=== PATIENT | female | born 1935 | race Caucasian/White ===

== ENCOUNTER 2020-03-10 09:23 | Emergency (ER) | payer MEDICARE, SELFPAY ==
[2020-03-10] VITALS (11 sets, daily range): BP systolic 128–178; BP diastolic 75–127; PULSE 66–117; RESP 14–20; O2SAT 92–98; BMI 17.7
--- NOTE | 2020-03-10 09:31 | ECG_ITS ---
Measurements Intervals [place] Rate: 97 P: 40 NM: 212 QRS: 50 QRSD: 77 T: 111 QT: 364 QTc: 464 SINUS RHYTHM WITH FIRST DEGREE AV BLOCK LOW QRS VOLTAGE IN EXTREMITY LEADS [QRS DEFLECTION < 0.5 mV IN LIMB LEADS] MARKED ST ELEVATION, CONSIDER INFERIOR INJURY [MARKED ST ELEVATION W/O NORMALLY INFLECTED T WAVE IN II/aVF] ACUTE TN INTERPRETATION BASED ON A DEFAULT AGE OF 40 YEARS Compared to ECG 03/12/2018 14:27:16 First degree AV block now present Low QRS voltage now present ST (T wave) deviation now present Myocardial infarct finding still present Electronically Signed On 03-10-2020 11:39:34 CDT by Wes Agustin M.D. [email or web address]
--- NOTE | 2020-03-10 09:31 | XR_ITS ---
WS: [id number] XR chest 1V portable [id number] REASON FOR EXAM: dyspnea/cough FINDINGS: The mass defect previously described in May 16, 2019 involving the right lower lung has in creased in size slightly now measures 9.54 x 7.99 cm. On previous exam and appear to be a nodule in the left upper lung this is not well seen today. There is cardiomegaly with arteriosclerotic changes. The 11th rib changes described on previous exam is not well seen today. XR/XR chest 1V portable [id number] IMPRESSION: Progressive mass defect right lower lung slightly more accentuated than previou s exam May 16, 2019. Arteriosclerotic heart disease.
[2020-03-10 09:41] LABS: Basophils # 0.1 10^3/uL (0.0-0.1); Basophils % 0.4 %; Hematocrit 41.4 % (37.0-47.0); Hemoglobin 12.8 g/dL (11.5-15.3); Lymphocytes # 2.4 10^3/uL (0.8-4.8); Lymphocytes % 8.9 %; Mean Corpuscular HGB Conc 30.9 g/dL (30.0-36.0); Mean Corpuscular Hemoglobin 28.3 pg (28.0-34.0); Mean Corpuscular Volume 91.4 fL (81-99); Mean Platelet Volume 9.9 fL (7.4-10.4); Monocytes # 1.7 10^3/uL (0.2-0.9); Monocytes % 6.5 %; Neutrophils # 22.1 10^3/uL (1.8-7.7); Neutrophils % 82.9 %; Nucleated Red Blood Cells % 0 %; Platelet Count 636 10^3/cmm (130-400); Red Blood Count 4.53 10^6/uL (4.1-5.3); Red Cell Distribution Width 16.5 % (12.1-15.1); White Blood Count 26.6 10^3/uL (4.0-10.0)
--- NOTE | 2020-03-10 09:41 | CT_ITS ---
WS: [id number] CT head wo con* [id number] REASON FOR EXAM: AMS IV CONTRAST ADMINISTERED: None TOTAL EXAM DLP: 894.[address] scans at [facility] use at least one of these dose optimization techniques: automat ed exposure control; mA and/or kV adjustment per patient size (includes targeted exams where dose is matched to clinical indication); or iterative reconstruction. FINDINGS: Progressive effacement of frontal and temporal lobes are seen with ventriculomegaly consist ent with moderate cerebral atrophy. Small vessel ischemic changes in the paraventricular area similar to the previous exam. Along the posterior fossa on the right side is a mass measures 2.48 cm. This lesion is heavy calcifie d and is similar in size to previous exam of March 2018. And is consistent with a calcified meningioma. There is calcification of the basal ganglions bilaterally. In the left lentiform nucleus area there is evidence of a remote small lacunar infarction. This is si milar to previous exam. The paranasal sinuses appear to be open with no inflammatory changes. The orbits appear to be normal and the optic nerves and optic chiasma's were normal. The 7th and 8th nerve complexes were normal. CT/CT head wo con* [id number] IMPRESSION: Comparisons were made to previous exam of March 11, 2018 with again noted a menin gioma involving the right occipital lobe this is heavily calcified and is arredondo ed slightly since previous exam. There is moderate cerebral atrophy appears to be slightly more progressive Lacunar infarction left internal capsule unchanged appears to be remote.
[2020-03-10 09:43] LABS: ABG PH Result 7.42 (7.35-7.45); Base Excess ABG -3.9 mmol/L (-2.0-2.0); Blood Gas Allen Test Pos; Blood Gas Sample Site Radial, left; Blood Gas Sample Type Arterial; Carboxyhemoglobin 0.9 %THgb (0.4-20.1); HCO3 ABG 19.5 mmol/L (22-26); HGB O2 Sat 93.3 % (95-100); Ionized Calcium Level - ABG 1.3 mmol/L (1.1-1.4); Methemoglobin 0.8 % (0.4-1.5); Oxygen Device ROOM AIR; PO2 ABG 71.1 mmHg (80.0-100.0); Potassium Level - ABG 4.4 mmol/L (3.5-5.0)
[2020-03-10 09:58] LABS: Alanine Aminotransferase 7 U/L (0-33); Albumin Level 3.7 g/dL (3.5-5.2); Alkaline Phosphatase 136 IU/L (35-105); Anion Gap 21.4 (5-19); Aspartate Amino Transferase 28 U/L (0-32); Blood Urea Nitrogen 22 mg/dL (8-23); Calcium 10.2 mg/dL (8.5-10.5); Carbon Dioxide 22 mmol/L (22-29); Chloride 106 mmol/L (98-107); Globulin 3.1 g/dL (1.3-4.6); Glucose 114 mg/dL (65-115); Lipase 20 U/L (13-60); Osmolality Calculated 296 mOsm/kg (285-295); Potassium 5.4 mmol/L (3.5-5.1); Sodium 144 mmol/L (136-145); Total Bilirubin 0.5 mg/dL (0.15-1.2); Total Protein 6.8 g/dL (6.6-8.7)
[2020-03-10 09:59] LABS: Ammonia 29 umol/L (11-51)
[2020-03-10 10:01] LABS: Lactate (Lactic Acid level) 4.1 mmol/L (0.5-2.2)
[2020-03-10 10:02] LABS: Alcohol Level < 10 mg/dL (0-10)
[2020-03-10 10:03] LABS: Troponin(5th) Baseline 1048 ng/mL (0-10)
--- NOTE | 2020-03-10 10:19 | PM.CONSULT ---
Providers/Reason For Consult Consulting Physican/Specialty*: Cardiovascular medicine Reason for Consult*: STEMI alert Requesting Physcian: Emergency medicine History of Present Illness History of Present Illness Brynn Peguero is a 84 year old female who was brought into the emergency room by ambulance. She lives at home with her daughter and granddaughter. Patient has severe dementia and is poorly communicative at baseline. Her daughter and granddaughter, with whom she lives, noticed a change in her mental status from being somewhat responsive and conversant to almost completely unresponsive late yesterday. Her daughter stated that she would just stare off in space and not talk at all . She also has not eaten or drunk anything for a while. Patient has severe underlying dementia which was diagnosed several years ago. 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 At that time her family, because of the underlying dementia and other medical problems, decided not to embark upon any type of treatment. Because of the mental status change the patient was brought to the emergency room today by ambulance. The ambulance EKG suggested an acute inferior wall ID so a STEMI alert was called. I then saw her here in the emergency room. Patient is completely unable to communicate. She will answer every question with a simple yes or no but the answers do not make any sense. She is unable to elaborate. She denies any pain. She has a right-sided gaze preference. Review of Systems General: Reports: ROS unobtainable due to medical condition Meds/Allergies Home Medications and Allergies Home Medications Medication Instructions Recorded Confirmed Last Taken Type galantamine 8 mg PO 03/10/20 Unknown History levothyroxine 75 mcg PO 03/10/20 Unknown History meloxicam 15 mg PO 03/10/20 Unknown History olanzapine 5 mg PO 03/10/20 Unknown History prednisone 5 mg PO 03/10/20 Unknown History PFSH Acute PFSH: Medical History (Updated 03/10/20 @ 10:30 by Jorge Joe MD) CAD (coronary artery disease) Chronic kidney disease (CKD) Degenerative joint disease Dementia Dyslipidemia Essential hypertension Hypothyroidism Lacunar infarction Meningioma, cerebral Nephrolithiasis Thrombocytosis Vitals/I&O/Wt Last Vital Signs Pulse 83 03/10/20 09:59 Resp 18 03/10/20 09:59 BP 173/120 03/10/20 09:59 Pulse Ox 94 05/09/20 09:59 Weight last 48 hrs Weight 110 lb Physical Exam Narrative: EXAM NARRATIVE: GENERAL: In general she is somewhat agitated with a right-sided gaze preference, basically uncommunicative, frail lying on a gurney HEENT: Exam within normal limits. NECK: Supple without jugular vein distention. The carotid upstroke is normal without bruits. BACK: Exam normal. LUNGS: Clear. Decreased breath sounds HEART: Regular rate and rhythm. ABDOMEN: Benign without organomegaly or tenderness. EXTREMITIES: No edema. NEUROLOGIC: Neurologic exam cannot be performed due to the underlying dementia. She has a right-sided gaze preference SKIN: Unremarkable. Data Other Data: Other data: EKG reveals sinus rhythm with ST elevation in the inferior leads. Lactate level 4.1. Troponin 1048. Arterial blood gas PO2 71, PCO2 30, pH 7.42. Chest x-ray shows an enlarging mass in the right lower lobe. CT of the head shows a meningioma in the right occipital lobe with a lacunar infarct in the left internal capsule. A&P Assessment and plan (1) CAD (coronary artery disease): Status: Acute (2) Acute transmural inferior wall ID: Status: Acute (3) Essential hypertension: Status: Acute (4) Dyslipidemia: Status: Acute (5) Dementia: Status: Acute (6) Chronic kidney disease (CKD): Status: Acute (7) Thrombocytosis: Status: Acute Additional A&P Information This is an untenable situation for any aggressive therapy regarding her cardiac status. I had a discussion with the patient's daughter and granddaughter regarding her cardiac status. I strongly recommend conservative therapy and no aggression. Her severe underlying dementia and agitation would require endotracheal intubation and general anesthesia to do a procedure. She would certainly have contrast-induced nephropathy given her underlying kidney disease. Additionally there is no benefit to performing angiography in this woman with untreatable and untreated cancer of the lung. We would likely do her more harm by anesthetizing her, intubating her and trying to perform a procedure. Therefore we will simply treat her expectantly. She should be made DNR/DNI. Her family did not want her intubated as far back as 2017 when she was diagnosed with lung cancer. We will be available peripherally if necessary. Consult Attestations Medical Necessity Statement: Not applicable Coding Level of Care Code New Pt Acute Dispute Resolution Analyst for g Fwd Patient Type New History Detailed Exam Detailed Medical Decision Making Moderate Complexity Diagnoses CAD (coronary artery disease) I25.10 Acute transmural inferior wall ID I21.19 Essential hypertension I10 Dyslipidemia E78.5 Dementia F03.90 Chronic kidney disease (CKD) N18.9 Thrombocytosis D47.3
--- NOTE | 2020-03-10 10:21 | PC.NURSE ---
Upon entering pt room, pt was noted to be bleeding from IV site on left AC. Pt cleaned and new sheets and chux pad placed. Pt was also soiled in her diaper and upon attempting to change pt and provide papi-care, pt became agitated and started kicking staff. VO received per Dr Roca to give 1mg Ativan IVP and 2mg Morphine IVP once. Pt IV site cleaned and re-dressed. Both IV sites secured with coban.
[2020-03-10] MEDS: LORazepam 2 mg/mL INJ 1 mL 1 MG IVP ×2 (10:23→11:58)
[2020-03-10] MEDS: sodium chloride 0.9% 500 ML IV (10:23)
[2020-03-10] MEDS: morphine 4 mg/mL SDV 1 mL 2 MG IVP (10:25)
[2020-03-10 11:02] LABS: Add Urine Microscopic? YES; Bilirubin Urine Neg (NEGATIVE); Blood Urine 2+ (Negative); Glucose Urine UA Norm (Normal); Ketones Urine 1+ (Negative); Leukocyte Esterase Urine 2+ (Negative); Nitrate Urine Negative (Negative); Protein Urine 1+ (Negative); Specific Gravity, Urine 1.015 (1.005-1.030); Urine Appearance Hazy (CLEAR); Urine Color Yellow (Yellow); Urobilinogen Urine 1 mg/dL (Negative); pH Urine 7 (5-7)
[2020-03-10 11:03] LABS: Bacteria Urine 4+; RBC Urine 15-25 /hpf (0-2); Squamous Epithelial Cell Urine 0-4 (0-5)
[2020-03-10 11:04] LABS: Add Urine Culture? Yes; WBC Urine 40-55 /hpf (0-5)
[2020-03-10 11:05] LABS: Amphetamines Screen Urine Negative (Negative); Barbiturates Screen Urine Negative (Negative); Benzodiazepines Screen Urine Negative (Negative); Cocaine Screen Urine Negative (Negative); Opiate Screen Urine Positive (Negative); PCP Screen Urine Negative (Negative); THC Screen Urine Negative (Negative)
--- NOTE | 2020-03-10 11:40 | W.ED.GENADLT ---
HPI - General Adult General: Chief complaint: General Medical Stated complaint: STEMI Time Seen by Provider: 03/10/20 09:30 History of Present Illness: HPI narrative: 84-year-old female who was brought in by EMS. Family noticed change in mental status last night around 10 PM to 12 AM she just persisted to this morning she is not really interactive at all she has dementia usually will interact even though her conversations Ortho do not make much sense. When EMS arrived they did an EKG and found that she had a acute STEMI. Although they could not get her to express that she had any chest pain when she arrives here she will make some intelligible comments mostly related to pain but I cannot get her to answer any specific questions in a reliable way. She is also noticed to have a fixed gaze to the right. Her dementia is quite severe confirmed this with the family. STEMI was called alert was called prior to the patient's arrival Dr. Joe has been to the department and seen her as well see the notes below. Unfortunately her history is completely unreliable from her and was gained from family and old records. Review of Systems General: Reports: ROS unobtainable due to medical condition and ROS unobtainable due to mental status PFS ED PFSH: Medical History CAD (coronary artery disease) Chronic kidney disease (CKD) Degenerative joint disease Dementia Dyslipidemia Essential hypertension Hypothyroidism Lacunar infarction Meningioma, cerebral Nephrolithiasis Thrombocytosis Physical Exam HENMT: COMMON NORMALS: normocephalic, head/scalp atraumatic, hearing grossly normal bilaterally and external ears normal HEAD & SCALP: normocephalic and atraumatic EXTERNAL EAR: Yes external ears normal Eye: OTHER: Fixed right gaze. Neck/C-Spine: COMMON NORMALS: full ROM, no lymphadenopathy, supple and no JVD Resp: COMMON NORMALS: normal respiratory effort, no retractions, no use of accessory muscles and clear to auscultation bilaterally AUSCULTATION: clear to auscultation bilaterally Cardio: COMMON NORMALS: no JVD, regular rate, regular rhythm and no murmurs RATE: regular rate RHYTHM: regular rhythm GI: COMMON NORMALS: soft to palpation and no hepatosplenomegaly AUSCULTATION: Yes normoactive bowel sounds PALPATION: Yes soft, No tender, No guarding and Yes no hepatosplenomegaly Extremity: COMMON NORMALS: normal to inspection, normal capillary refill, no clubbing, cyanosis or edema, no calf tenderness and no pedal edema Course Vital Signs: Vital signs: Vital Signs Pulse Rate 103 H 03/10/20 14:30 Respiratory Rate 16 03/10/20 14:30 Blood Pressure 148/82 03/10/20 14:30 Pulse Oximetry 93 03/10/20 14:30 MDM - General Adult MDM Narrative: Medical decision making narrative: Dr. Joe and I conferred he had reviewed the record and family history of lung cancer. We met with the family and recommended maximal medical therapy and monitoring. Unfortunately aggressive interventions required her to be intubated to go to the [employer] [facility]. She is much more likely to be harmed by this than benefited. Is likely she is well into her STEMI at this point. In this conversation we were aware that the patient had a history of lung cancer which they had elected not to treat but unbeknownst to us she was already on hospice care. Discussed with Dr. Gonzalez will look at doing observation he is reevaluating with the family whether or not not the patient will actually be placed on observation whether or not he will she will go home for continued comfort cares at home. Lab Data: Labs: Lab Results 03/10/20 03/10/20 03/10/20 Range/Units 09:30 09:30 09:30 WBC 26.6 H (4.0-10.0) 10^3/ uL RBC 4.53 (4.1-5.3) 10^6/u L Hgb 12.8 (11.5-15.3) g/dL Hct 41.4 (37.0-47.0) % MCV 91.4 (81-99) fL MCH 28.3 (28.0-34.0) pg MCHC 30.9 (30.0-36.0) g/dL RDW 16.5 H (12.1-15.1) % Plt Count 636 H (130-400) 10^3/c mm MPV 9.9 (7.4-10.4) fL Neut % (Auto) 82.9 % Lymph % (Auto) 8.9 % [place] % (Auto) 6.5 % Eos % (Auto) 0.0 % Baso % (Auto) 0.4 % Neut # (Auto) 22.1 H (1.8-7.7) 10^3/u L Lymph # (Auto) 2.4 (0.8-4.8) 10^3/u L [place] # (Auto) 1.7 H (0.2-0.9) 10^3/u L Eos # (Auto) 0.0 (0.0-0.8) 10^3/u L Baso # (Auto) 0.1 (0.0-0.1) 10^3/u L Nucleated RBC % (a uto) 0 % Nucleated RBCs # 0.0 /100WBC Specimen Type Sample Site ABG pH (7.35-7.45) ABG pCO2 (35-45) mmHg ABG pO2 (80.0-100.0) mmH g ABG HCO3 (22-26) mmol/L ABG O2 Saturation ABG Base Excess (-2.0-2.0) mmol/ L Alberto Test A-a O2 Gradient (5-10) mmHg Hematocrit (37-47) % Hgb O2 Saturation (95-100) % Carboxyhemoglobin (0.4-20.1) %THgb Methemoglobin (0.4-1.5) % Total Hemoglobin (12-16) g/dL Ionized Calcium (1.1-1.4) mmol/L O2 Delivery Device FiO2 % General Lithographic Worker ID Sodium 144 (136-145) mmol/L Potassium 5.4 H (3.5-5.1) mmol/L Chloride 106 (98-107) mmol/L Carbon Dioxide 22 (22-29) mmol/L Anion Gap 21.4 H (5-19) BUN 22 (8-23) mg/dL Creatinine 2.3 H (0.5-0.9) mg/dL Glucose 114 (65-115) mg/dL Calculated Osmolal ity 296 H (285-295) mOsm/k g Lactate (0.5-2.2) mmol/L Calcium 10.2 (8.5-10.5) mg/dL Total Bilirubin 0.5 (0.15-1.2) mg/dL AST 28 (0-32) U/L ALT 7 (0-33) U/L Alkaline Phosphata se 136 H (35-105) IU/L Ammonia 29 (11-51) umol/L Troponin T Baselin e (0-10) ng/mL Total Protein 6.8 (6.6-8.7) g/dL Albumin 3.7 (3.5-5.2) g/dL Globulin 3.1 (1.3-4.6) g/dL Lipase 20 (13-60) U/L Urine Color (Yellow) Urine Appearance (CLEAR) Urine pH (5-7) Ur Specific Gravit y (1.005-1.030) Urine Protein (Negative) Urine Glucose (UA) (Normal) Urine Ketones (Negative) Urine Blood (Negative) Urine Nitrate (Negative) Urine Bilirubin (NEGATIVE) Urine Urobilinogen (Negative) mg/dL Ur Leukocyte Michelle ase (Negative) Urine RBC (0-2) /hpf Urine WBC (0-5) /hpf Ur Squamous Epith Cells (0-5) Urine Bacteria (NONE) Urine Opiates Scre en (Negative) ng/mL Ur Barbiturates Sc reen (Negative) ng/mL Ur Phencyclidine S crn (Negative) ng/mL Ur Amphetamines Sc reen (Negative) ng/mL U Benzodiazepines Scrn (Negative) ng/mL Urine Cocaine Scre en (Negative) ng/mL U Marijuana (THC) Screen (Negative) ng/mL Ethyl Alcohol < 10 (0-10) mg/dL 03/10/20 03/10/20 03/10/20 Range/Units 09:30 09:30 09:32 WBC (4.0-10.0) 10^3/ uL RBC (4.1-5.3) 10^6/u L Hgb (11.5-15.3) g/dL Hct (37.0-47.0) % MCV (81-99) fL MCH (28.0-34.0) pg MCHC (30.0-36.0) g/dL RDW (12.1-15.1) % Plt Count (130-400) 10^3/c mm MPV (7.4-10.4) fL Neut % (Auto) % Lymph % (Auto) % [place] % (Auto) % Eos % (Auto) % Baso % (Auto) % Neut # (Auto) (1.8-7.7) 10^3/u L Lymph # (Auto) (0.8-4.8) 10^3/u L [place] # (Auto) (0.2-0.9) 10^3/u L Eos # (Auto) (0.0-0.8) 10^3/u L Baso # (Auto) (0.0-0.1) 10^3/u L Nucleated RBC % (a uto) % Nucleated RBCs # /100WBC Specimen Type Arterial Sample Site Radial, left ABG pH 7.42 (7.35-7.45) ABG pCO2 30.0 L (35-45) mmHg ABG pO2 71.1 L (80.0-100.0) mmH g ABG HCO3 19.5 L (22-26) mmol/L ABG O2 Saturation 95.0 ABG Base Excess -3.9 L (-2.0-2.0) mmol/ L Alberto Test Pos A-a O2 Gradient 41.0 H (5-10) mmHg Hematocrit 40.0 (37-47) % Hgb O2 Saturation 93.3 L (95-100) % Carboxyhemoglobin 0.9 (0.4-20.1) %THgb Methemoglobin 0.8 (0.4-1.5) % Total Hemoglobin 13.0 (12-16) g/dL Ionized Calcium 1.3 (1.1-1.4) mmol/L O2 Delivery Device Room air FiO2 21.0 % General Lithographic Worker ID cak Sodium 144.0 H (136-145) mmol/L Potassium 4.4 (3.5-5.1) mmol/L Chloride (98-107) mmol/L Carbon Dioxide (22-29) mmol/L Anion Gap (5-19) BUN (8-23) mg/dL Creatinine (0.5-0.9) mg/dL Glucose 113.0 (65-115) mg/dL Calculated Osmolal ity (285-295) mOsm/k g Lactate 4.1 H* (0.5-2.2) mmol/L Calcium (8.5-10.5) mg/dL Total Bilirubin (0.15-1.2) mg/dL AST (0-32) U/L ALT (0-33) U/L Alkaline Phosphata se (35-105) IU/L Ammonia (11-51) umol/L Troponin T Baselin e 1048 H* (0-10) ng/mL Total Protein (6.6-8.7) g/dL Albumin (3.5-5.2) g/dL Globulin (1.3-4.6) g/dL Lipase (13-60) U/L Urine Color (Yellow) Urine Appearance (CLEAR) Urine pH (5-7) Ur Specific Gravit y (1.005-1.030) Urine Protein (Negative) Urine Glucose (UA) (Normal) Urine Ketones (Negative) Urine Blood (Negative) Urine Nitrate (Negative) Urine Bilirubin (NEGATIVE) Urine Urobilinogen (Negative) mg/dL Ur Leukocyte Michelle ase (Negative) Urine RBC (0-2) /hpf Urine WBC (0-5) /hpf Ur Squamous Epith Cells (0-5) Urine Bacteria (NONE) Urine Opiates Scre en (Negative) ng/mL Ur Barbiturates Sc reen (Negative) ng/mL Ur Phencyclidine S crn (Negative) ng/mL Ur Amphetamines Sc reen (Negative) ng/mL U Benzodiazepines Scrn (Negative) ng/mL Urine Cocaine Scre en (Negative) ng/mL U Marijuana (THC) Screen (Negative) ng/mL Ethyl Alcohol (0-10) mg/dL 03/10/20 03/10/20 Range/Units 10:42 10:42 WBC (4.0-10.0) 10^3/ uL RBC (4.1-5.3) 10^6/u L Hgb (11.5-15.3) g/dL Hct (37.0-47.0) % MCV (81-99) fL MCH (28.0-34.0) pg MCHC (30.0-36.0) g/dL RDW (12.1-15.1) % Plt Count (130-400) 10^3/c mm MPV (7.4-10.4) fL Neut % (Auto) % Lymph % (Auto) % [place] % (Auto) % Eos % (Auto) % Baso % (Auto) % Neut # (Auto) (1.8-7.7) 10^3/u L Lymph # (Auto) (0.8-4.8) 10^3/u L [place] # (Auto) (0.2-0.9) 10^3/u L Eos # (Auto) (0.0-0.8) 10^3/u L Baso # (Auto) (0.0-0.1) 10^3/u L Nucleated RBC % (a uto) % Nucleated RBCs # /100WBC Specimen Type Sample Site ABG pH (7.35-7.45) ABG pCO2 (35-45) mmHg ABG pO2 (80.0-100.0) mmH g ABG HCO3 (22-26) mmol/L ABG O2 Saturation ABG Base Excess (-2.0-2.0) mmol/ L Alberto Test A-a O2 Gradient (5-10) mmHg Hematocrit (37-47) % Hgb O2 Saturation (95-100) % Carboxyhemoglobin (0.4-20.1) %THgb Methemoglobin (0.4-1.5) % Total Hemoglobin (12-16) g/dL Ionized Calcium (1.1-1.4) mmol/L O2 Delivery Device FiO2 % General Lithographic Worker ID Sodium (136-145) mmol/L Potassium (3.5-5.1) mmol/L Chloride (98-107) mmol/L Carbon Dioxide (22-29) mmol/L Anion Gap (5-19) BUN (8-23) mg/dL Creatinine (0.5-0.9) mg/dL Glucose (65-115) mg/dL Calculated Osmolal ity (285-295) mOsm/k g Lactate (0.5-2.2) mmol/L Calcium (8.5-10.5) mg/dL Total Bilirubin (0.15-1.2) mg/dL AST (0-32) U/L ALT (0-33) U/L Alkaline Phosphata se (35-105) IU/L Ammonia (11-51) umol/L Troponin T Baselin e (0-10) ng/mL Total Protein (6.6-8.7) g/dL Albumin (3.5-5.2) g/dL Globulin (1.3-4.6) g/dL Lipase (13-60) U/L Urine Color Yellow (Yellow) Urine Appearance Hazy A (CLEAR) Urine pH 7 (5-7) Ur Specific Gravit y 1.015 (1.005-1.030) Urine Protein 1+ H (Negative) Urine Glucose (UA) Norm (Normal) Urine Ketones 1+ H (Negative) Urine Blood 2+ H (Negative) Urine Nitrate Negative (Negative) Urine Bilirubin Neg (NEGATIVE) Urine Urobilinogen 1 H (Negative) mg/dL Ur Leukocyte Michelle ase 2+ H (Negative) Urine RBC 15-25 H (0-2) /hpf Urine WBC 40-55 H (0-5) /hpf Ur Squamous Epith Cells 0-4 H (0-5) Urine Bacteria 4+ H (NONE) Urine Opiates Scre en Positive H (Negative) ng/mL Ur Barbiturates Sc reen Negative (Negative) ng/mL Ur Phencyclidine S crn Negative (Negative) ng/mL Ur Amphetamines Sc reen Negative (Negative) ng/mL U Benzodiazepines Scrn Negative (Negative) ng/mL Urine Cocaine Scre en Negative (Negative) ng/mL U Marijuana (THC) Screen Negative (Negative) ng/mL Ethyl Alcohol (0-10) mg/dL Discharge Plan Discharge Patient Disposition: Hospice - Home Clinical Impression: Essential hypertension ST elevation (STEMI) myocardial infarction Qualifiers: Involved coronary artery: LAD coronary artery Qualified Code(s): I21.02 - ST elevation (STEMI) myocardial infarction involving left anterior descending coronary artery Dementia Qualifiers: Dementia type: unspecified type Dementia behavioral disturbance: with behavioral disturbance Qualified Code(s): F03.91 - Unspecified dementia with behavioral disturbance CAD (coronary artery disease) Qualifiers: Coronary Disease-Associated Artery/Lesion type: [place] artery [place] vs. transplanted heart: [place] heart Associated angina: with unstable angina Qualified Code(s): I25.110 - Atherosclerotic heart disease of [place] coronary artery with unstable angina pectoris Lung cancer Qualifiers: Laterality: right Lung location: lower lobe of lung Qualified Code(s): C34.31 - Malignant neoplasm of lower lobe, right bronchus or lung Condition: Serious Prescriptions: New morphine 20 mg/5 mL (4 mg/mL) solution See Rx Instructions .ROUTE .COMPLEX PRN (Reason: For pain or air hunger) Qty: 100 RF: 0 lorazepam 2 mg/mL concentrate See Rx Instructions .ROUTE .COMPLEX Qty: 30 RF: 0 Levsin/SL 0.125 mg tablet, sublingual 0.125 mg PO .q4hrs PRN (Reason: For secretions) 30 Days Qty: 90 RF: 0 Discontinued meloxicam 15 mg Tablet 15 mg PO RF: 0 prednisone 5 mg Tablet 5 mg PO RF: 0 olanzapine 5 mg Tablet 5 mg PO RF: 0 levothyroxine 75 mcg Tablet 75 mcg PO RF: 0 galantamine 8 mg Capsule,Ext Rel. Pellets 24 Hr 8 mg PO RF: 0 Discharge Orders: Discharge Order (Routine); Ordered 03/10/20 Ordered By: Ellis Wayne Referrals: Mark Malcolm, [Primary Care Provider] - Discharge Diet: Regular Discharge Activity: Resume usual activity Discharge Date/Time: 03/10/20 16:34 Coding Level of Care Code ED Staking Engineer for Chg Fwd Exam Detailed
[2020-03-10] MEDS: morphine 4 mg/mL SDV 1 mL 1 MG IVP (11:58)
[2020-03-10] MEDS: haloperidol inj 5 mg/mL INJ 1 mL 2 MG IVP (11:59)
--- NOTE | 2020-03-10 12:36 | PM.DCS ---
Discharge Providers Date of Admission: 03/10/20 10:45 Date of Discharge: March 10, 2020 Attending Provider at Admission: Ellis Wayne MD Attending Provider at Discharge: Ellis Wayne MD Primary Care Provider: Mark Malcolm DO Diagnoses at Discharge Discharge Diagnosis (1) CAD (coronary artery disease): Status: Acute (2) Acute transmural inferior wall NV: Status: Acute (3) Essential hypertension: Status: Acute (4) Dyslipidemia: Status: Acute (5) Dementia: Status: Acute (6) Chronic kidney disease (CKD): Status: Acute (7) Thrombocytosis: Status: Acute Reason for Visit Reason for Visit: Reason For Visit: STEMI, DEMENTIA, AMS, LUNG CA Hospital Course Discharge Summary: Brynn Peguero is a 84 year old female with a past medical history of severe dementia, dyslipidemia, hypothyroidism, hypertension, known lung cancer, CAD, CKD, dementia to [facility] through the emergency room for concerns for mental status changes, nonresponsiveness. Patient has a history of severe dementia, known right lower lung cancer, for which she is on hospice through [facility]. In the emergency room [facility], patient was found to have acute inferior wall NV, patient was writhing in pain,and agitation, and did not make any discernible words, did not make any sense, mostly history was obtained through ER physician, the chart, and patient's family patient's power of ip attorney is her daughter Brynn Peguero STEMI alert was called,. Patient's family members Risks and benefits of cardiac catheterization and ICU admission, and intubation, were discussed with patient's family members. Patient's family members did not want aggressive interventions, wanted her to remain comfortable, nor was that information volunteered by family members at that point I do not believe that the ER physician or Dr. Joe knew that patient was on hospice. I was called for hospital admission for inpatient hospice, pain management, hydration, clinical monitoring, possible antibiotics for aspiration pneumonia. I spoke to patient's daughter, Malcolm Liu, who is patient's power of ip attorney, I advised daughter that patient has had a STEMI, acute respiratory failure, has evidence of aspiration pneumonia, has evidence of sepsis and septic shock. Options that were made available to the daughter were full medical interventions including interventions for cardiac catheterization, ICU admission, IV hydration, IV antibiotics, intubation and mechanical ventilation. However patient's daughter stated that patient is on home hospice for her dementia and right lower lung cancer, she wants her to remain comfortable, pain-free, and she wants her mother to be at home with her in her hospice program. Risks and benefits of home hospice were discussed, patient's daughter voiced understanding, all questions answered, agreed to home with hospice. I spoke to our case workers who helped coordinate with her home hospice company. I spoke to patient's home hospice company, and come passes, I spoke to patient's hospice nurse, who agreed for home hospice, I have sent morphine, Ativan, hyoscyamine to patient's pharmacy, patient was also sent on oxygen for comfort. I spoke to Dr. Joe, who is agreement for home hospice. I spoke to Dr. Velarde, who is agreement for patient to be discharged from the emergency room to home hospice. I rechecked her daughter, and advised her that everybody is in agreement to send her home through the emergency room with home hospice. Patient was discharged home on home hospice to the emergency room. Physical Exam Narrative: EXAM NARRATIVE: Alert oriented x0 Const: COMMON NORMALS: negative for oriented x3 Neck/C-Spine: COMMON NORMALS: no JVD Resp: EFFORT & INSPECTION: Yes tachypneic and Yes labored AUSCULTATION: wheezes Cardio: COMMON NORMALS: no JVD, S1 normal heart sound and S2 normal heart sound RATE: tachycardic HEART SOUNDS: S1 normal and S2 normal GI: COMMON NORMALS: normal to inspection, nondistended, normoactive bowel sounds and soft to palpation PALPATION: Yes soft Neuro: COMMON NORMALS: negative for oriented x3 Psych: OTHER: Does not respond to commands, is writhing in pain, is fairly agitated Discharge Data Data Completed and Pending: Completed Studies During Hospitalization Category Date Time Status CT head wo con* [id number] Stat Cat Scan 03/10/20 09:41 Completed XR chest 1V ree ble [id number] Stat Exams 03/10/20 09:31 Completed Pending at discharge Category Date Time Status Blood Culture Sta t Lab 03/10/20 10:07 Results Troponin(5th) 6 h our. Timed Lab 03/10/20 15:31 Ordered Urine Culture Sta t Lab 03/10/20 10:42 Received Labs from last 24 hours 03/10/20 03/10/2003/10/20 10:42 10:42 09:32 WBC RBC Hgb Hct MCV MCH MCHC RDW Plt Count MPV Neut % (Auto) Lymph % (Auto) Park % (Auto) Eos % (Auto) Baso % (Auto) Neut # (Auto) Lymph # (Auto) Park # (Auto) Eos # (Auto) Baso # (Auto) Nucleated RBC % (a uto) Nucleated RBCs # Specimen Type Arterial Sample Site Radial, left ABG pH 7.42 ABG pCO2 30.0 L ABG pO2 71.1 L ABG HCO3 19.5 L ABG O2 Saturation 95.0 ABG Base Excess -3.9 L Alberto Test Pos A-a O2 Gradient 41.0 H Hematocrit 40.0 Hgb O2 Saturation 93.3 L Carboxyhemoglobin 0.9 Methemoglobin 0.8 Total Hemoglobin 13.0 Ionized Calcium 1.3 O2 Delivery Device Room air FiO2 21.0 Level Glass Forming Machine Operator ID cak Sodium 144.0 H Potassium 4.4 Chloride Carbon Dioxide Anion Gap BUN Creatinine Glucose 113.0 Calculated Osmolal ity Lactate Calcium Total Bilirubin AST ALT Alkaline Phosphata se Ammonia Troponin T Baselin e Total Protein Albumin Globulin Lipase Urine Color Yellow Urine Appearance Hazy A Urine pH 7 Ur Specific Gravit y 1.015 Urine Protein 1+ H Urine Glucose (UA) Norm Urine Ketones 1+ H Urine Blood 2+ H Urine Nitrate Negative Urine Bilirubin Neg Urine Urobilinogen 1 H Ur Leukocyte Michelle ase 2+ H Urine RBC 15-25 H Urine WBC 40-55 H Ur Squamous Epith Cells 0-4 H Urine Bacteria 4+ H Urine Opiates Scre en Positive H Ur Barbiturates Sc reen Negative Ur Phencyclidine S crn Negative Ur Amphetamines Sc reen Negative U Benzodiazepines Scrn Negative Urine Cocaine Scre en Negative U Marijuana (THC) Screen Negative Ethyl Alcohol 03/10/20 03/10/20 03/10/20 09:30 09:30 09:30 WBC 26.6 H RBC 4.53 Hgb 12.8 Hct 41.4 MCV 91.4 MCH 28.3 MCHC 30.9 RDW 16.5 H Plt Count 636 H MPV 9.9 Neut % (Auto) 82.9 Lymph % (Auto) 8.9 Park % (Auto) 6.5 Eos % (Auto) 0.0 Baso % (Auto) 0.4 Neut # (Auto) 22.1 H Lymph # (Auto) 2.4 Park # (Auto) 1.7 H Eos # (Auto) 0.0 Baso # (Auto) 0.1 Nucleated RBC % (a uto) 0 Nucleated RBCs # 0.0 Specimen Type Sample Site ABG pH ABG pCO2 ABG pO2 ABG HCO3 ABG O2 Saturation ABG Base Excess Alberto Test A-a O2 Gradient Hematocrit Hgb O2 Saturation Carboxyhemoglobin Methemoglobin Total Hemoglobin Ionized Calcium O2 Delivery Device FiO2 Level Glass Forming Machine Operator ID Sodium Potassium Chloride Carbon Dioxide Anion Gap BUN Creatinine Glucose Calculated Osmolal ity Lactate 4.1 H* Calcium Total Bilirubin AST ALT Alkaline Phosphata se Ammonia Troponin T Baselin e 1048 H* Total Protein Albumin Globulin Lipase Urine Color Urine Appearance Urine pH Ur Specific Gravit y Urine Protein Urine Glucose (UA) Urine Ketones Urine Blood Urine Nitrate Urine Bilirubin Urine Urobilinogen Ur Leukocyte Michelle ase Urine RBC Urine WBC Ur Squamous Epith Cells Urine Bacteria Urine Opiates Scre en Ur Barbiturates Sc reen Ur Phencyclidine S crn Ur Amphetamines Sc reen U Benzodiazepines Scrn Urine Cocaine Scre en U Marijuana (THC) Screen Ethyl Alcohol 03/10/20 03/10/20 09:30 09:30 WBC RBC Hgb Hct MCV MCH MCHC RDW Plt Count MPV Neut % (Auto) Lymph % (Auto) Park % (Auto) Eos % (Auto) Baso % (Auto) Neut # (Auto) Lymph # (Auto) Park # (Auto) Eos # (Auto) Baso # (Auto) Nucleated RBC % (a uto) Nucleated RBCs # Specimen Type Sample Site ABG pH ABG pCO2 ABG pO2 ABG HCO3 ABG O2 Saturation ABG Base Excess Alberto Test A-a O2 Gradient Hematocrit Hgb O2 Saturation Carboxyhemoglobin Methemoglobin Total Hemoglobin Ionized Calcium O2 Delivery Device FiO2 Level Glass Forming Machine Operator ID Sodium 144 Potassium 5.4 H Chloride 106 Carbon Dioxide 22 Anion Gap 21.4 H BUN 22 Creatinine 2.3 H Glucose 114 Calculated Osmolal ity 296 H Lactate Calcium 10.2 Total Bilirubin 0.5 AST 28 ALT 7 Alkaline Phosphata se 136 H Ammonia 29 Troponin T Baselin e Total Protein 6.8 Albumin 3.7 Globulin 3.1 Lipase 20 Urine Color Urine Appearance Urine pH Ur Specific Gravit y Urine Protein Urine Glucose (UA) Urine Ketones Urine Blood Urine Nitrate Urine Bilirubin Urine Urobilinogen Ur Leukocyte Michelle ase Urine RBC Urine WBC Ur Squamous Epith Cells Urine Bacteria Urine Opiates Scre en Ur Barbiturates Sc reen Ur Phencyclidine S crn Ur Amphetamines Sc reen U Benzodiazepines Scrn Urine Cocaine Scre en U Marijuana (THC) Screen Ethyl Alcohol < 10 Vitals: Last Vital Signs Pulse 85 03/10/20 11:59 Resp 18 03/10/20 11:59 BP 128/88 03/10/20 11:59 Pulse Ox 94 03/10/20 11:59 Discharge Plan Discharge Patient Disposition: Home, Self-Care Condition: Serious Prescriptions: New morphine 20 mg/5 mL (4 mg/mL) solution See Rx Instructions .ROUTE .COMPLEX PRN (Reason: For pain or air hunger) Qty: 100 RF: 0 lorazepam 2 mg/mL concentrate See Rx Instructions .ROUTE .COMPLEX Qty: 30 RF: 0 Levsin/SL 0.125 mg tablet, sublingual 0.125 mg PO .q4hrs PRN (Reason: For secretions) 30 Days Qty: 90 RF: 0 Discontinued meloxicam 15 mg Tablet 15 mg PO RF: 0 prednisone 5 mg Tablet 5 mg PO RF: 0 olanzapine 5 mg Tablet 5 mg PO RF: 0 levothyroxine 75 mcg Tablet 75 mcg PO RF: 0 galantamine 8 mg Capsule,Ext Rel. Pellets 24 Hr 8 mg PO RF: 0 Discharge Orders: Discharge Order (Routine); Ordered 03/10/20 Ordered By: Ellis Wayne Referrals: Mark Malcolm DO [Primary Care Provider] - Discharge Diet: Regular Discharge Activity: Resume usual activity Discharge Attestations Time Spent in Discharge Care*: less than 30 min Quality Metrics Clinical Quality Measures During this hospital stay, did patient experience: None Coding Level of Care Code Acute Water Resource Agent for Chg Fwd Diagnoses CAD (coronary artery disease) I25.10 Acute transmural inferior wall NV I21.19 Essential hypertension I10 Dyslipidemia E78.5 Dementia F03.90 Chronic kidney disease (CKD) N18.9 Thrombocytosis D47.3
== END 2020-03-10 16:34 | disposition hospice, home (50) ==
LOC: ER 11:23 → MEDSURG 11:28 → ER 13:30
PROVIDERS: Emergency Provider Family Medicine; PCP Electrodiagnostic Medicine
DX: I21.02 ST elevation (STEMI) myocardial infarction involving left anterior descending coronary artery (principal); F03.90 Unspecified dementia, unspecified severity, without behavioral disturbance, psychotic disturbance, mood disturbance, and anxiety; I25.110 Atherosclerotic heart disease of native coronary artery with unstable angina pectoris; C34.31 Malignant neoplasm of lower lobe, right bronchus or lung; E78.5 Hyperlipidemia, unspecified; I10 Essential (primary) hypertension; E03.9 Hypothyroidism, unspecified
CPT/HCPCS: 12345; 36600; 70450; 71045; 80051; 80053; 80306; 80307; 81001; 82140; 82810; 83605; 83690; 83986; 84484; 85025; 87040; 87077; 87086; 87186; 93005; 96361; 96374; 96375; 96376; 99284; 99285; J1630; J2060; J2270; J7040